=== PATIENT | male | born 1935 | race Caucasian/White ===

== ENCOUNTER 2023-08-30 06:16 | Inpatient (IN) | payer OTHER, SELFPAY ==
--- NOTE | 2023-08-17 08:36 | CM ---
Addendum entered by Mayda Peralta 08/28/23 06:56:
Discussed VN options with . She does not want [facility] again. She selects [facility].
VN referral completed and sent to [facility] through [employer] with request for start of care on 09/01. Confirmation received of their ability to accept referral. dividend deposit entry clerk to fax discharge instructions to [facility] when complete. [facility] fax:
[phone].
Original Note:
Patient is scheduled for an elective L TKR on 08/30/23. Spoke with patient's prior to surgery via telephone. Patient had a R TKR at in 2014. Reintroduced role of Orthopedic Navigator. She reports that she and patient live in a one story home.
There are no steps to enter. He currently functions independently. He has a rolling walker. He has had VN services service [facility]. PCP is Dr. Mart Mariano.
Discussed orthopedic program and post surgical plans. Reviewed anticipated length of stay and that goal is for patient to return home at discharge. Also reviewed outpatient PT. She is in agreement with tentative plan but states that she will not be
able to assist patient. He will need VN services upon discharge.
Patient will complete online education.
Plan: Orthopedic Navigator will remain available to assist with the care of patient and will reassess discharge needs after surgery.
--- NOTE | 2023-08-25 09:58 | HPS.HSE ---
Family Physician
-
Family Physician: Mart Mariano
Chief Complaint
-
Advanced primary osteoarthritis of the left knee.
History of Present Illness
The patient is an 88 year old male presenting today for advanced primary osteoarthritis of the left knee. The patient previously underwent a rather uncomplicated right total knee arthroplasty with Dr. Leodan Ratliff in May 2015. He
returns to [facility] today with complaints of significant left knee pain associated with his osteoarthritis. He notes that his current left knee pain is greatly interfering with his activities of daily living and is overall impacting his
quality of life. He has tried and failed multiple conservative treatment measures in the past for his left knee pain. These conservative treatment measures include physical therapy, self-directed therapeutic exercises, activity modification, medical
management with Tylenol and NSAIDs, and the application of ice and/or heat. Recent x-ray findings of the left knee confirmed advanced tricompartmental osteoarthritis. He was determined to be in need of a left total knee arthroplasty. He denies any
current complaints today such as chest pain, shortness of breath, palpitations, nausea, vomiting, diarrhea, lightheadedness, dizziness, cough, sore throat, or fever.
Medical History
Past Medical History
Past Medical History: Reports Other
Additional Past Medical History:
1. Osteoarthritis, status post right total knee arthroplasty, 05/2015, by Dr. Leodan Ratliff.
2. Hypertension.
3. Dyslipidemia.
4. Coronary artery disease, status post PCI with LAD stent 2008.
5. Carotid atherosclerosis without significant stenosis.
6. Sinus bradycardia, asymptomatic.
7. COPD.
8. 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
9. Gastroesophageal reflux disorder.
10. Remote GI ulcer with bleed secondary to Celebrex.
11. Peripheral neuropathy.
12. Ambulatory dysfunction.
13. Multilevel degenerative disc disease.
14. BPH.
15. Prostate cancer, 2007, status post radiation.
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
17. Skin cancer, forehead and back, status post excision 2019.
18. Chronic anemia.
19. Prediabetes, A1c 5.8.
20. History of remote tobacco abuse.
Past Surgical History: Reports Other
Additional Past Surgical History:
1. Right total knee arthroplasty, 05/2015, by Dr. Leodan Ratliff
2. Bilateral carpal tunnel release.
3. Left elbow ulnar nerve transposition.
4. Left rotator cuff repair.
5. PCI with LAD stent.
8. Right inguinal hernia repair.
9. Left eye glaucoma surgery.
10. Bilateral cataract extraction.
11. Dental extraction.
12. Multiple colonoscopies.
Social History
Tobacco: Former Smoker (Former 1 pack per day cigarette smoker who quit tobacco altogether 30 years ago. )
Alcohol: Other (Rare. )
Personal:
Living: Other (He lives with his in a 1st floor apartment with no stairs to enter in. )
Family History
Family History: Not pertinent
Allergies / Home Medications
Allergy/Medication List:
Home medications:
1. Acetaminophen 1300 mg p.o. at bedtime as needed.
2. Aspirin 162 mg p.o. daily.
3. Atorvastatin 40 mg p.o. every evening.
4. Fish oil 1 capsule p.o. daily.
5. Multivitamin 1 tablet p.o. daily.
Allergies: Celebrex. Isosorbide. Penicillin. Zolpidem.
Review of Systems
-
A 12 point ROS was completed and negative except as noted: Yes
Physical Exam
Vital Signs
Blood pressure 157/71. Heart rate 56. Respirations 18. Pulse ox 97% on room air.
Height 5 feet, 3 inches. Weight 64.7 kg. BMI 25.3.
Physical Exam
General: Well Developed, Well Nourished and No Apparent Distress
HEENT: NormoCephalic, Moist mucous membranes, Atraumatic and PERRLA
Respiratory: Clear
Cardiac: Bradycardia
GI: Soft, Non Tender and Non Distended
Musculoskeletal: Other (Left knee: large effusion. Positive warmth. Range of motion 7-110. Right knee: 1-135 range of motion. Neutral alignment. No effusion. Bilateral hips: 20 internal, 20 external without pain. )
Skin: Warm and Dry
Neuro: AO x 3 and Cranial Nerves Intact
Laboratory Results
-
DIAGNOSTIC STUDIES as of 08/25/2023: White blood cell count 6.4. Hemoglobin 12.4. Platelet count 177,000. Sodium 135. Potassium 5.0. BUN 19. Creatinine 1.1. Glucose 88. Hemoglobin A1c 5.8. Calcium 9.0. AST 34. ALT 22. Albumin 4.0. MRSA nasal screen
negative.
EKG provided by Cardiology.
Echocardiogram 08/17/2022: Normal biventricular size and systolic function without regional wall motion abnormality. Thickened mitral valve leaflets. Aortic sclerosis without stenosis. No prior study available for comparison.
Impression/Plan
-
CLEARANCES:
1. Primary medical, Dr. Mart Mariano, cleared.
Primary medical phone number: [phone].
2. Cardiology, Dr. Renuka Betancourt, cleared at elevated risk.
3. Dental waived.
IMPRESSION/PLAN:
1. Advanced primary osteoarthritis of the left knee in need of a left total knee arthroplasty with Dr. Leodan Ratliff on 08/30/2023. The benefits and risks of the procedure have been explained to the patient. The patient understands these risks and
wishes to proceed.
2. DVT prophylaxis - Aspirin with bilateral venous compression devices.
3. Previous GI bleed secondary to Celebrex - Celebrex and NSAIDs will be avoided post-procedure.
Patient's home phone number: [phone].
Patient's cell phone number: [phone].
Patient's contact (Yolanda Hand - Spouse): [phone].
[2023-08-25 14:10] VITALS: BMI 25.3
[2023-08-25 14:24] LABS: Hematocrit 37.9 % (39.0-52.0); Hemoglobin 12.4 g/dL (13.0-18.0); Mean Corp Hgb Conc. 32.7 g/dL (33.0-37.0); Mean Corpuscular Volume 91.5 fL (80.0-94.0); Mean Platelet Volume 9.9 fL (7.4-10.4); Platelet Count 177 10^3/uL (130-400); Red Blood Cell Count 4.14 10^6/uL (4.70-6.10); Red Cell Dist. Width 14.7 % (11.5-14.5); White Blood Cell Count 6.4 10^3/uL (4.8-10.8)
[2023-08-25 14:34] LABS: Glycohemoglobin (HgbA1c) 5.8 % (4.0-5.6)
[2023-08-25 14:45] LABS: ALT (SGPT) 22 U/L (0-50); AST (SGOT) 34 U/L (17-59); Alkaline Phosphatase 99 U/L (38-126); Blood Urea Nitrogen 19 mg/dl (9-20); Carbon Dioxide 26 mmol/L (22-30); Chloride 103 mmol/L (98-107); Estimated Creatinine Clearance 37 ml/min; Glucose 88 mg/dl (70-99); Sodium 135 mmol/L (135-145); Total Bilirubin 0.5 mg/dl (0.2-1.3); Total Protein 6.8 g/dl (6.3-8.2); eGFR > 60.00
[2023-08-25 15:29] VITALS: BMI 25.3
[2023-08-30] VITALS (12 sets, daily range): BP systolic 90–153; BP diastolic 41–72; PULSE 63; O2SAT 94
[2023-08-30] MEDS: NORMOSOL-R 1000 IV ×2 (07:45→11:19)
[2023-08-30] MEDS: TYLENOL 650 MG PO ×3 (07:58→21:05)
[2023-08-30] MEDS: CELEBREX 200 MG PO (07:58)
[2023-08-30] MEDS: ASPIR LOW (ENTERIC COATED) 81 MG PO (08:20)
--- NOTE | 2023-08-30 09:47 | W.PN.ORTHO ---
Today's Communication / Plan
-
D/c when clinically stable.
Assessment
.
Distal Motor Intact: Yes
Dressing:
Clean, dry and intact.
Assessment:
L knee OA s/p L TKA w/ Dr Ratliff 08/30/23
- s/p R TKA, 05/2015, by Dr Ratliff
DVT prophylaxis - ASA, b/l venous foot pumps
HTN - no current meds - monitor BP
Coronary artery disease, status post PCI with LAD stent 2008
Carotid atherosclerosis without significant stenosis
- ASA 162 mg continued pre-op w/o interruption
- Given ASA 81 mg morning of surgery per Anesthesia
- Resume ASA post-op but at 325 mg dosing x4 weeks for blood clot prevention
COPD and asbestosis exposure - monitor O2
- IS
- Decadron
GERD and remote GI ulcer with bleed secondary to Celebrex - avoid Celebrex and NSAIDs post-procedure
- Start daily Protonix
Peripheral neuropathy - consider Gabapentin or Lyrica
Ambulatory dysfunction - on fall precautions
BPH - start daily Flomax
- Monitor voids
Chronic anemia - non-invasive hgb in AM
Dyslipidemia
Sinus bradycardia, asymptomatic
Multilevel degenerative disc disease
Prostate cancer, 2007, status post radiation
History of radiation enteritis
Skin cancer, forehead and back, status post excision 2019
Prediabetes, A1c 5.8
History of remote tobacco abuse
Plan
.
Surgery / Date: L TKA w/ Dr Ratliff 08/30/23
DVT Prophylaxis: Aspirin
Activity:
Out of bed.
PT/OT
Discharge Plan: Home w/ VN
Subjective
.
.:
Patient resting comfortably in bed.
L knee pain minimal and currently well tolerated.
Denies any acute complaints.
Vital Signs and Labs
.
Vital Signs and Labs:
Lab Results
08/25/23 12:27
08/25/23 12:27
Temp Pulse Resp BP Pulse Ox
97.7 F 69 18 153/71 98
08/30/23 07:35 08/30/23 07:35 08/30/23 07:35 08/30/23 07:35 08/30/23 07:35
Physical Exam
-
HEENT: No pallor, cyanosis, or jaundice. Throat clear.
NECK: Supple. No JVD.
RESPIRATORY: Lungs clear to auscultation.
CVS: S1, S2 normal. RRR.�
ABDOMEN: Soft, non-tender. No distension.
EXTREMITIES: No calf pain with palpation/dorsiflexion. Calves soft.
AD TRAFFICKER: AOx3. No focal deficits. plant security guard grossly intact
[2023-08-30] MEDS: ROXICODONE 5 MG PO (11:14)
[2023-08-30] MEDS: TYLENOL PO ×2 (15:43→23:51)
[2023-08-30] MEDS: LIPITOR 40 MG PO (16:44)
[2023-08-30] MEDS: ASPIRIN 325 MG PO (16:44)
[2023-08-30] MEDS: PROTONIX 40 MG PO (16:44)
[2023-08-30] MEDS: FLOMAX 0.400000000000000022 MG PO (16:44)
[2023-08-30] MEDS: ANCEF 5 IV (16:44)
[2023-08-30] MEDS: SENOKOT 17.1999999999999993 MG PO (21:05)
[2023-08-30] MEDS: COLACE 100 MG PO (21:06)
[2023-08-30] MEDS: DECADRON 4 MG PO (21:06)
[2023-08-30] MEDS: BACTROBAN 2% OINTMENT 1 APPLIC NASAL (21:18)
[2023-08-31] MEDS: TYLENOL 650 MG PO ×3 (00:05→11:18)
[2023-08-31] MEDS: ROXICODONE 5 MG PO ×2 (00:05→09:17)
[2023-08-31] MEDS: ANCEF 5 IV (02:18)
[2023-08-31 03:51] VITALS: BP 115/53
[2023-08-31] MEDS: TYLENOL PO (04:53)
[2023-08-31 07:15] VITALS: BP 137/79
--- NOTE | 2023-08-31 08:47 | CM ---
Reviewed chart and held rounds with PT, OT and nursing. Patient admitted as planned for elective L TKR. Met with patient at bedside. Confirmed information previously obtained for assessment. Also discussed discharge plans. The plan is for patient to
return home at discharge. His will be his support at home but not able to physically assist him. Reviewed VN services including start of care (tentatively 09/01), services to be ordered (PT,FLUOROSCOPE OPERATOR, SN) and frequency/duration of services. Options
list provided and PAC data reviewed. Patient selects [facility].
Patient has a rolling walker at home.
VN referral was completed and sent to [facility] through [employer] with request for start of care on 09/01. Confirmation received of their ability to accept case. appeals and generalist clerk to fax discharge instructions to [facility] when complete. [facility] fax:
[phone].
Patient will use [facility] in [place], [place] pharmacy for discharge prescriptions.
[2023-08-31 09:12] VITALS: BP 124/67; PULSE 88; O2SAT 94
[2023-08-31] MEDS: PROTONIX 40 MG PO (09:12)
[2023-08-31] MEDS: COLACE 100 MG PO (09:13)
[2023-08-31] MEDS: ASPIRIN 325 MG PO (09:13)
[2023-08-31] MEDS: FLOMAX 0.400000000000000022 MG PO (09:13)
[2023-08-31] MEDS: SENOKOT 17.1999999999999993 MG PO (09:13)
[2023-08-31] MEDS: BACTROBAN 2% OINTMENT 1 APPLIC NASAL (09:14)
[2023-08-31] MEDS: DECADRON 4 MG PO (09:14)
--- NOTE | 2023-08-31 09:15 | W.PN.ORTHO ---
Today's Communication / Plan
-
Await PT and OT recs.
D/c later today if remaining clinically stable.
Assessment
.
Distal Motor Intact: Yes
Dressing:
Clean, dry and intact.
Assessment:
L knee OA s/p L TKA w/ Dr Ratliff 08/30/23
- s/p R TKA, 05/2015, by Dr Ratliff
DVT prophylaxis - ASA, b/l venous foot pumps
HTN - no current meds - BPs stable
Coronary artery disease, status post PCI with LAD stent 2008
Carotid atherosclerosis without significant stenosis
- ASA 162 mg continued pre-op w/o interruption
- Given ASA 81 mg morning of surgery per Anesthesia
- Resume ASA post-op but at 325 mg dosing x4 weeks for blood clot prevention
COPD and asbestosis exposure - O2 stable on RA
- IS
- Continue Decadron for 3 days post-surgery
GERD and remote GI ulcer with bleed secondary to Celebrex - avoid Celebrex and NSAIDs post-procedure
- Continue daily Protonix while on post-op pain meds
Peripheral neuropathy - consider Gabapentin or Lyrica
Ambulatory dysfunction - on fall precautions
BPH - Flomax during admission
- Pt void appropriately by POD 1; no need for Flomax at home as pt denies straining/feelings of retention.
Chronic anemia - non-invasive hgb 11.2 POD 1
- Asymptomatic, hemodynamically stable
Dyslipidemia
Sinus bradycardia, asymptomatic
Multilevel degenerative disc disease
Prostate cancer, 2007, status post radiation
History of radiation enteritis
Skin cancer, forehead and back, status post excision 2019
Prediabetes, A1c 5.8
History of remote tobacco abuse
Plan
.
Surgery / Date: L TKA w/ Dr Ratliff 08/30/23
DVT Prophylaxis: Aspirin
Activity:
Out of bed.
PT/OT
Discharge Plan: Home w/ VN
Subjective
.
.:
Patient resting comfortably in his bed this AM.
L knee pain well controlled w/ current pain meds.
Denies any new significant complaints.
Eager for potential d/c today.
Vital Signs and Labs
.
Vital Signs and Labs:
Lab Results
08/25/23 12:27
08/25/23 12:27
Temp Pulse Resp BP Pulse Ox
97.7 F 74 18 137/79 97
08/31/23 07:15 08/31/23 07:15 08/31/23 07:15 08/31/23 07:15 08/31/23 07:15
Non-invasive Hgb result: 11.2
Physical Exam
-
HEENT: No pallor, cyanosis, or jaundice. Throat clear.
NECK: Supple. No JVD.
RESPIRATORY: Lungs clear to auscultation.
CVS: S1, S2 normal. RRR.�
ABDOMEN: Soft, non-tender. No distension.
EXTREMITIES: Mild L knee post-surgical edema. Strength equal, no calf pain with palpation/dorsiflexion. Calves soft.
NURSE FIRST AID: AOx3. No focal deficits. memorial designer grossly intact
--- NOTE | 2023-08-31 10:08 | W.DS.TRANS ---
DC Summary - Hand Therapist
-
Discharge Instructions:
Sleep Apnea Risk Low
Discharge Diagnosis/Procedures L knee OA s/p L TKA w/ Dr Ratliff 08/30/23
Diet Other diet
Additional Diets Diabetic carb controlled x1 week for wound
healing/infection prevention; then resume
regular diet.
Activity As tolerated,With Walker
Driving Restrictions Not until seen by your Dr
Bathing Restrictions OK to Shower
Other Services PT,VN
Wound Care Dressing to be removed 1 week post-surgery.
Instructions:
Stand-Alone Forms: Total Hip/Knee Replacement D/C
Changes to Home Medications: Yes
Discharge Medications:
DC Medications w/original date entered in [employer]
atorvastatin 40 mg tablet 40 mg PO QPM High cholesterol 04/30/15
docosahexaenoic acid (dha)-epa 120 mg-180 mg capsule (Fish Oil) 1 cap PO DAILY High cholesterol 04/30/15
therapeutic multivitamin 1 tab PO DAILY Supplement 08/17/22
mupirocin 2 % topical ointment 1 applic intranasal BID #1 tube 08/25/23
acetaminophen 650 mg tablet,extended release 1,300 mg PO Q8H #0 tabs 08/31/23
aspirin 325 mg tablet 325 mg PO DAILY #30 tabs 08/31/23
dexamethasone 4 mg tablet 4 mg PO BID #5 tabs 08/31/23
docusate sodium 100 mg capsule 100 mg PO BID #30 caps 08/31/23
ondansetron HCl 4 mg tablet 4 mg PO Q6H PRN nausea and vomiting #30 tabs 08/31/23
oxycodone 5 mg tablet 5 - 10 mg PO Q4H PRN moderate-severe pain #30 tabs 08/31/23
pantoprazole 40 mg tablet,delayed release 40 mg PO DAILY #30 tabs 08/31/23
sennosides 8.6 mg tablet (Senna Lax) 17.2 mg PO BID #30 tabs 08/31/23
Home Medication Changes
acetaminophen 650 mg tablet,extended release 1,300 mg PO Q8H #0 tabs 08/31/23
aspirin 325 mg tablet 325 mg PO DAILY #30 tabs 08/31/23
dexamethasone 4 mg tablet 4 mg PO BID #5 tabs 08/31/23
docusate sodium 100 mg capsule 100 mg PO BID #30 caps 08/31/23
ondansetron HCl 4 mg tablet 4 mg PO Q6H PRN nausea and vomiting #30 tabs 08/31/23
oxycodone 5 mg tablet 5 - 10 mg PO Q4H PRN moderate-severe pain #30 tabs 08/31/23
pantoprazole 40 mg tablet,delayed release 40 mg PO DAILY #30 tabs 08/31/23
sennosides 8.6 mg tablet (Senna Lax) 17.2 mg PO BID #30 tabs 08/31/23
Pending Results: No
[2023-08-31 10:13] VITALS: BP 118/73; PULSE 89; O2SAT 98
== END 2023-08-31 12:34 | disposition home health service (06) | DRG 470 ==
LOC: 2 SOUTH 06:16
PROVIDERS: ADMITTING PHYSICIAN Orthopaedic Surgery; FAMILY PHYSICIAN Internal Medicine
PROC: 0SRD0J9 Replacement of Left Knee Joint with Synthetic Substitute, Cemented, Open Approach (ICD-10-PCS; 2023-08-30)
DX: M17.12 Unilateral primary osteoarthritis, left knee (principal); Z96.651 Presence of right artificial knee joint; I10 Essential (primary) hypertension; E78.5 Hyperlipidemia, unspecified; I25.10 Atherosclerotic heart disease of native coronary artery without angina pectoris; Z95.5 Presence of coronary angioplasty implant and graft; J44.9 Chronic obstructive pulmonary disease, unspecified; Z77.090 Contact with and (suspected) exposure to asbestos; K21.9 Gastro-esophageal reflux disease without esophagitis; N40.0 Benign prostatic hyperplasia without lower urinary tract symptoms; Z87.891 Personal history of nicotine dependence; D64.9 Anemia, unspecified
CPT/HCPCS: 36415; 73560; 80053; 83036; 85027; 87070; 97110; 97162; 97166; 97530; C1713; C1776